=== PATIENT | male | born 1950 | race Caucasian/White ===

== ENCOUNTER 2017-04-23 10:30 | Day surgery (SDC) | payer MEDICARE, BC ==
[~2017-04-23 10:30] MED LIST: RINGERS SOLUTION,LACTATED 1,000 ML IV PRN; ceFAZolin SODIUM 2 GM in DEXTROSE 5 % IN WATER 50 ML IV PRN
--- OUTSIDE RECORDS SUMMARY | 2017-04-23 10:34 | XMS REPORT | Continuity of Care Document ---
:1950 Author Organization [facility] ([facility]) Address [address] [place] [address] Phone [phone] Care Team Providers Name Role Phone Provider, No-Primary Care Primary Care Provider Unavailable Source Comments This disclosure is being made pursuant to the Care Everywhere program, applicable federal and state laws, and may not contain all informaitonavailable regarding this patient.[facility] ([facility]) Active Allergies and Adverse Reactions Not on File Current Medications Not on file Active Problems Not on file Social History Tobacco Use Types Packs/Day Years Used Date Never Assessed Plan of Care Health Maintenance Due Date Last Done Comments HCV Screening 1950 Hepatitis B Vaccine (1 of 3 - Primary Series) 1950 Tdap Vaccine 1959 Lipid Disorder Screening 1966 Td Vaccine 1966 Colonoscopy 1998 Prostate Cancer Screening 1998 Zoster Vaccine 2008 Pneumococcal Vaccine (1 of 2 - PCV13) 2013 Influenza Vaccine: Seasonal (#1) 06/19/2016 Results from Last 3 Months Not on file
--- OUTSIDE RECORDS SUMMARY | 2017-04-23 10:34 | XMS REPORT | Continuity of Care Document ---
:1950 Author Organization [facility] [place] [address] Care Team Providers Name Role Phone Unavailable Primary Care Provider Unavailable Source Comments This disclosure is being made pursuant to the [employer] program and maynot contain all information available regarding this patient.[facility] Active Allergies and Adverse Reactions Not on File Current Medications Be aware that medications may not be up to date as of this document. Alwaysverify current medications with the patient. Not on file Active Problems Not on file Social History Tobacco Use Types Packs/Day Years Used Date Never Assessed Plan of Care Health Maintenance Due Date Last Done Comments Retired-Pertussis Vaccine Adult 1967 Retired-Tetanus Vaccine Adult 1969 Colonoscopy 1998 Well Adult Visit 1998 Zoster Vaccine 60+ 2008 Retired-Pneumococcal 23 Vaccine-65+ yo 2013 Retired-INFLUENZA VACCINE 07/20/2015 Results from Last 3 Months Not on file
[2017-04-23] MEDS ORDERED: BUPIVACAINE HCL/EPINEPHRINE 50 ML VIAL IJ ONE ×2 (13:46)
[2017-04-23] MEDS ORDERED: RINGERS SOLUTION,LACTATED 1,000 ML IV PRN (15:02)
[2017-04-23] MEDS ORDERED: MORPHINE SULFATE 2 MG/ML DISP.SYRIN IV PRN (15:02)
[2017-04-23] MEDS ORDERED: oxyCODONE HCL/ACETAMINOPHEN 1 TAB TABLET PO ONE (15:30)
[2017-04-23 16:28] VITALS: BP 156/89
--- NOTE | 2017-04-23 16:59 | OR ---
Operative Report - Dictated Report Narrative: OPERATIVE REPORT DATE OF OPERATION: 04/23/2017 PREOPERATIVE DIAGNOSIS: Recurrent umbilical hernia POSTOPERATIVE DIAGNOSIS: Recurrent umbilical hernia (2 cm fascial defect) OPERATION: Repair of recurrent umbilical hernia using Ventralex mesh hernia patch SURGEON: Manjit Martinez MD ANESTHESIA: Gen. LMA Mago Howell CRNA INDICATIONS FOR PROCEDURE: The patient is a 67-year-old male referred by Dr Saul. The patient has had a previous primary tissue repair of an umbilical hernia which has recurred. FINDINGS: Recurrent umbilical hernia with 2 cm fascial defect NARRATIVE OF PROCEDURE: The patient was identified preoperatively. The surgical site was identified. Prior to the administration of anesthetic a multidisciplinary timeout was observed. The patient was placed supine, SCDs were applied, and 2 g of intravenous Ancef administered. Gen. LMA anesthetic was administered. The patient's abdomen was prepped with Betadine solution and the area around the umbilicus isolated with 4 sterile towels. The remainder the patient was covered with a sterile disposable drape. A transverse supraumbilical skin incision was outlined with a marking pen. The skin incision was made sharply. Dissection was carried through subcutaneous tissue with electrocautery until sutures from the previous hernia repair were encountered. These were removed. The hernia sac was dissected free from subcutaneous tissue and undersurface of the umbilical skin. The sac was opened and digitally explored. There were no local adhesions. The properitoneal space was then developed circumferentially to allow deployment of a Ventralex hernia patch in the properitoneal space. The hernia sac was closed with 0 chromic suture. The patch was placed behind the defect and totally unfurled. The wings of the patch were then secured circumferentially to the edges of the fascia with interrupted sutures of 0 Ethibond. Subcutaneous tissue was undermined superiorly and inferiorly to allow approximation with interrupted sutures of 0 chromic to cover the hernia repair. The undersurface of the umbilical skin was tacked to the subcutaneous tissue for inversion using 0 chromic suture. The skin incision was approximated with a running subcuticular suture of 4-0 Vicryl. The operative site was washed and dried. A dressing of Dermabond and a Mepilex border was applied. The operative procedure was terminated at this point. The patient tolerated the anesthetic and procedure well without complication. There was no measurable blood loss. No specimen was submitted. 0.5% Marcaine with epinephrine was used for local anesthetic infiltration. All sponge needle and instrument counts were correct. The patient was transferred to the recovery room awake, extubated, and in stable condition. The patient remained stable throughout a period of postoperative observation. He had minimal incisional discomfort, was up without assistance, and tolerated a regular diet. I shared the operative findings with him. He was discharged home with instructions not to lift and not to drive. He is to keep the wound dry and covered for 48 hours but then may shower and change the dressing daily as needed. He was given a prescription for Percocet 5/325 mg #30 1-2 po Q4- 6hrs prn pain, and a return office appointment was made for 1 week. He has phone numbers to call when necessary signs of wound infection or hematoma. Reviewed and electronically signed
== END 2017-04-23 10:31 | disposition home or self-care (01) ==
LOC: AMB 10:30
PROVIDERS: ATTEND Surgery
PROC: 0WUF0JZ Supplement Abdominal Wall with Synthetic Substitute, Open Approach (ICD-10-PCS; principal; 2017-04-23 11:20)
DX: K42.9 Umbilical hernia without obstruction or gangrene (principal); I12.9 Hypertensive chronic kidney disease with stage 1 through stage 4 chronic kidney disease, or unspecified chronic kidney disease; N18.4 Chronic kidney disease, stage 4 (severe); E78.5 Hyperlipidemia, unspecified; N40.1 Benign prostatic hyperplasia with lower urinary tract symptoms; N13.8 Other obstructive and reflux uropathy; M19.90 Unspecified osteoarthritis, unspecified site; E66.9 Obesity, unspecified; Z68.32 Body mass index [BMI] 32.0-32.9, adult; F17.200 Nicotine dependence, unspecified, uncomplicated